=== PATIENT | female | born 1990 | race Caucasian/White ===

== ENCOUNTER 2020-07-15 18:33 | Emergency (ER) | payer OTHER ==
[~2020-07-15] VITALS: Ht 167.6 cm; Wt 77.1 kg
[2020-07-15 18:45] VITALS: BP 114/69
== END 2020-07-15 20:15 | disposition home or self-care (01) ==
LOC: ER 18:39
DX: F12.929 Cannabis use, unspecified with intoxication, unspecified (principal); R42 Dizziness and giddiness; F41.9 Anxiety disorder, unspecified; F32.9 Major depressive disorder, single episode, unspecified; F42.9 Obsessive-compulsive disorder, unspecified; F17.200 Nicotine dependence, unspecified, uncomplicated